=== PATIENT | female | born 1960 | race Caucasian/White ===

== ENCOUNTER 2018-06-17 18:52 | Emergency (ER) | payer SELFPAY ==
[2018-06-17] MEDS ORDERED: Amoxicillin/Potassium Clav 875 MG TAB ONE (19:50)
[2018-06-17] MEDS ORDERED: Rabies Vaccine Human 2.5 UNITS VIAL IM ONE (20:15)
[2018-06-17] MEDS ORDERED: Adacel (T-DAP) 0.5 ML VIAL ONE (20:23)
== END 2018-06-17 22:30 | disposition home or self-care (01) ==
LOC: ERS 18:52
DX: S61.451A Open bite of right hand, initial encounter (principal); Z23 Encounter for immunization; W55.51XA Bitten by raccoon, initial encounter
CPT/HCPCS: 90375; 90471; 90472; 90675; 90715; 96372

== ENCOUNTER 2018-06-20 12:17 | Emergency (ER) | payer SELFPAY ==
[2018-06-20] MEDS ORDERED: Rabies Vaccine Human 2.5 UNITS VIAL IM ONE (12:30)
== END 2018-06-20 12:57 ==
LOC: ERS 12:17
DX: Z23 Encounter for immunization (principal)
CPT/HCPCS: 90471; 90675

== ENCOUNTER 2018-06-24 12:23 | Day surgery (SDC) | payer SELFPAY ==
[2018-06-24] MEDS ORDERED: Rabies Vaccine Human 2.5 UNITS VIAL IM ONE (13:15)
== END 2018-06-24 14:31 | disposition home or self-care (01) ==
LOC: ER/OP 12:23 → ERS 12:23 → SDC 12:23 → ER/OP 12:23 → SDC 14:31 → ER/OP 14:31
PROVIDERS: ATTEND Physician Assistant
DX: Z23 Encounter for immunization (principal)
CPT/HCPCS: 90471; 90675

== ENCOUNTER → 2018-07-01 | Day surgery (SDC) | payer SELFPAY ==
[~2018-07-01] MED LIST: Rabies Vaccine Human 2.5 UNITS VIAL IM ONE
== END ==
LOC: ER/OP 12:08
PROVIDERS: ATTEND Internal Medicine Nephrology
DX: Z23 Encounter for immunization (principal)
CPT/HCPCS: 90471; 90675

== ENCOUNTER → 2018-07-15 | Day surgery (SDC) | payer SELFPAY ==
[~2018-07-15] MED LIST changes: -Rabies Vaccine Human 2.5 UNITS VIAL IM ONE; +Rabies Vaccine Human 2.5 UNITS VIAL ONE
== END ==
LOC: SCSER/OP 16:29
PROVIDERS: ATTEND Emergency Medicine
DX: Z23 Encounter for immunization (principal)
CPT/HCPCS: 90675